=== PATIENT | male | born 1980 | race Caucasian/White ===

== ENCOUNTER → 2022-02-25 10:03 | Outpatient (CLI) | payer BC, SELFPAY ==
--- NOTE | 2022-02-25 10:11 | CT_ITS ---
FINAL REPORT CLINICAL HISTORY: EPIGASTRIC PAIN,CHEST WALL PAIN FINDINGS: CT OF THE ABDOMEN AND PELVIS WITH CONTRAST Axial CT images of the abdomen and pelvis were obtained after the administration of oral and iv contrast. Coronal reformatted images were also obtained and reviewed.This study was performed with techniques to keep radiation doses as low as reasonably achievable (ALARA). Individualized dose reduction techniques using automated exposure control or adjustment of mA and/or kV according to the patient's size were employed. Abdomen: The heart is normal in size. The liver has an unremarkable appearance, without evidence of mass or biliary ductal dilatation. The spleen and gallbladder are unremarkable. No adrenal mass is present. The pancreas has an unremarkable appearance. The kidneys are normal, without evidence of mass or hydronephrosis. The aorta is normal in caliber. There is no free fluid or adenopathy. No mass or abnormal fluid collection is seen. Pelvis: The appendix is normal. There is a small umbilical hernia containing fat. The urinary bladder is unremarkable. No inflammatory process is seen. There is no evidence of mass or adenopathy. There is no evidence of bowel obstruction. IMPRESSION: No evidence of acute intra-abdominal process. Reviewed, Interpreted and Dictated by Juancarlos Bradshaw III, MD Transcribed by Preeti Akbar Authenticated by Juancarlos Bradshaw III, MD on 02/25/2022 12:49:00 PM [facility]
--- NOTE | 2022-02-25 10:11 | CT_ITS ---
FINAL REPORT CLINICAL HISTORY: EPIGASTRIC PAIN,CHEST WALL PAIN FINDINGS: Axial CT images of the chest were obtained with contrast. Coronal reformatted images were also obtained. This study was performed with techniques to keep radiation doses as low as reasonably achievable, (ALARA). Individualized dose reduction techniques using automated exposure control or adjustment of mA and/or KV according to the patient''''s size were employed. There is no evidence of mediastinal or hilar mass or adenopathy.No axillary mass or adenopathy is identified. On lung window images, no pulmonary mass or dominant pulmonary nodule is identified. No localized pulmonary inflammatory process is identified. There is mild dependent atelectasis. A calcified granuloma is seen in the right upper lobe. IMPRESSION: No mass or localized inflammatory process. Reviewed, Interpreted and Dictated by Juancarlos Bradshaw III, MD Transcribed by Preeti Akbar Authenticated by Juancarlos Bradshaw III, MD on 02/25/2022 12:49:[address] [facility]
== END ==
PROVIDERS: PCP Internal Medicine Adolescent Medicine; Visit Provider Internal Medicine Adolescent Medicine
DX: R07.89 Other chest pain (principal); R10.13 Epigastric pain
CPT/HCPCS: 71260; 74177; Q9967

== ENCOUNTER 2022-03-30 09:26 | Day surgery (SDC) | payer BC, SELFPAY ==
[2022-03-29 08:12] VITALS: BMI 29.7
[2022-03-30 09:43] VITALS: BP 151/80; PULSE 87; RESP 18; TEMP 37.1; O2SAT 99
--- NOTE | 2022-03-30 09:54 | P.PN_ITS ---
[facility] Anesthesia Checklist - Patient Identification Patient Identification: Arm Band, Verbal (Name & ) - Structural Data Admitted From: Home Planned Operative Procedure/s: Colonoscopy Consent for Planned Operative Procedure(s) Verified: Yes Verified Documents: Surgical Consent - Airway Assessment C-Spine Mobility Assessed: Yes TMJ Mobility Assessed: Yes Dentition: Good Dentition - Neurological Assessment Level of Consciousness: Awake, Alert, Appropriate - Anesthesia Plan Anesthesia Risk discussed: Yes ASA Class: II Anesthesia Type: MAC [facility] History I have reviewed the patient's past medical history: Yes Medical History: Denies:: Cancer, Diabetes Mellitus Type 1, Diabetes Mellitus Type 2, Internal Pacemaker, MRSA, Seizures *Have you ever received a pneumonia vaccine?: No *Have you received a flu vaccine this season?: Yes Anesthesia experience/problems:: none Laterality Cases: Bilateral: Arthroscopy Knee Other Surgeries: No: Pacemaker Amputation: No Fractures: No - *Social History Smoking Status: Never smoker Alcohol Intake: never Substance Use Type: denies use *Occupational Status:: employed Housing: house *Travel in the last 8 weeks: None Family Hx:: Cancer
[2022-03-30 10:26] VITALS: O2SAT 99
--- NOTE | 2022-03-30 10:59 | [facility].SCOPE ---
- Procedure: Date: 03/30/22 Patient Date of :: 1980 Procedure Performed:: Colonoscopy with polypectomy by means other than snare Indications:: History of colon polyps Family history of colon cancer Performing Provider:: Jose Rafael Erickson MD Referring Provider:: Dr. Wilcox Sedation:: Monitored anesthesia care Procedure:: After informed consent was obtained the patient was taken to the endoscopy suite. Sedation ensued after the patient was transferred to the left lateral decubitus position. Pulse, blood pressure, and oxygen saturation were monitored throughout the procedure. Digital rectal exam revealed no significant abnormality. The colonoscope was placed in position. The entire colon was evaluated. The colonoscope was carefully removed and the patient was transferred to recovery in stable condition. Please see findings and specimens below for detail. Findings:: Bowel preparation fair to moderate Moderate lack of relaxation Small polyp at 15 cm Specimens:: Polyp at 15 cm (cold biopsy forceps) Recommendations:: Timing of repeat colonoscopy is pending pathology but will likely be between 3-5 years. Complications:: No immediate Estimated blood obtained (mL): 1
[2022-03-30 11:00] VITALS: BP 124/66; PULSE 68; RESP 12; TEMP 36.2; O2SAT 93
[2022-03-30 11:10] VITALS: BP 123/67; PULSE 62; RESP 16; O2SAT 98
[2022-03-30 11:20] VITALS: BP 133/90; PULSE 65; RESP 16; O2SAT 97
[2022-03-30 11:30] VITALS: BP 153/70; PULSE 61; RESP 16; TEMP 36.2; O2SAT 98
== END 2022-03-30 11:38 | disposition home or self-care (01) ==
LOC: OUTP 09:29
PROVIDERS: PCP Internal Medicine Adolescent Medicine; Visit Provider Surgery
PROC: 0DJD8ZZ Inspection of Lower Intestinal Tract, Via Natural or Artificial Opening Endoscopic (ICD-10-PCS; CPT 45380; principal; 2022-03-30 10:30)
DX: Z12.11 Encounter for screening for malignant neoplasm of colon (principal); K63.5 Polyp of colon; Z80.0 Family history of malignant neoplasm of digestive organs
CPT/HCPCS: 45380